=== PATIENT | male | born 1950 | race Caucasian/White ===

== ENCOUNTER → 2016-12-29 | Outpatient (CLI) | payer MEDICARE ==
[~2016-12-29] MED LIST: ALPRAZOLAM PO; AMOXICILLIN PO; ASPIRIN PO; ASPIRIN81 M1 PO; COSOPT EYE DROPS5 ML OP; CYMBALTA PO; FLONASE 0.05% N16 G1 INH; LAMICTAL100 MG PO; LAMOTRIGINE100 MG PO; LUMIGAN; MESTINON PO; PRAVACHOL PO; PRAVASTATIN SOD80 MG PO; PRILOSEC PO; PRILOSEC20 MG PO; SEROQUEL PO; VITAMIN D50000 UNIT PO; WELLBUTRIN SR150 MG PO; WELLBUTRIN XL PO; ZOLOFT PO; ZOLOFT100 MG PO
--- NOTE | ~2016-12-29 | MR175 ---
[facility] A Service of [facility] & [facility] RADIOLOGY TEXT RESULTS PATIENT: NOE STAHL LOCATION: [facility] : 48 UNIT #: [id number] AGE: [address]: Alfredo Worley MD SEX: M ORDER DR: [id number] [facility] [address] [place], [place] [address] [id number] O MR#: [id number] Acc #: [id number] NAME: NOE STAHL : 1950 SEX: M STUDY DATE/TIME: 12/29/2016 15:49 UNIT: [facility] ROOM: STUDY DESCRIPTION: MR Thoracic WWo Contrast Attending Physician: Alfredo Worley Ordering Physician: Alfredo Worley M.D. Primary Care Physician: Gabriela De La Rosa M.D. MRI CENTER REPORT This report is preliminary unless electronic signature is present. EXAM Thoracic spine MR with and without contrast 12/29/2016 CLINICAL HISTORY Disequilibrium for 3 years; previous surgery for arachnoid cyst. COMPARISON Prior thoracic spine MR dated 05/27/2003 FINDINGS There has been previous laminectomy centered at T6. Cord signal is normal. There is mild degenerative change with slight canal narrowing at 11-12 and 12-1, but no cord compression is seen. Along the posterior margin of the thecal sac centered at about T10 is what appears to be a possible thin arachnoid cyst, as much as 4.5 cm in craniocaudal dimension, and perhaps as much as 5 mm in AP dimension but without apparent mass effect on the cord and also not confirmed on axial images. A similar structure is faintly identifiable in retrospect on the prior exam probably slightly more prominent on the current study though still at that time up to 5 mm in maximal AP dimension. IMPRESSION Slightly more prominent possible arachnoid cyst centered at T10 without mass effect on the cord, measurements above, though the lesion or potential lesion was also probably present in retrospect in April 2003. The exam is otherwise unremarkable except for changes from laminectomy at T6. Cord signal is normal. No mass effect or abnormal enhancement seen. Dictated by... [facility] A Service of [facility] & [facility] RADIOLOGY TEXT RESULTS PATIENT: NOE STAHL [facility] UNIT #: [id number] AGE: [address]: Alfredo Worley MD SEX: M ORDER DR: Delon Lama M.D. THIS IS AN ELECTRONICALLY VERIFIED REPORT Delon Lama M.D. at 01/03/2017 11:48 AM TEV/to TD: 01/01/2017 18:35 JOB #: [id number] MRI CENTER REPORT COPY
--- NOTE | ~2016-12-29 | MR31 ---
[facility] A Service of [facility] RADIOLOGY TEXT RESULTS PATIENT: NOE STAHL LOCATION: [facility] : 48 UNIT #: [id number] AGE: [address]: Alfredo Worley MD SEX: M ORDER DR: [id number] [facility] [address] [place], [place] [address] [id number] O MR#: [id number] Acc #: [id number] NAME: NOE STAHL : 1950 SEX: M STUDY DATE/TIME: 12/29/2016 15:49 UNIT: [facility] ROOM: STUDY DESCRIPTION: MR Cervical WWo Contrast Attending Physician: Alfredo Worley M.D. Ordering Physician: Alfredo Worley M.D. Primary Care Physician: Gabriela De La Rosa M.D. MRI CENTER REPORT This report is preliminary unless electronic signature is present. EXAM Cervical spine MRI with and without contrast 12/29/2016. COMPARISON None. PROCEDURE Cervical spine MRI with and without contrast. Multiple series were repeated due to repeated patient motion despite repeated instructions from the technologist. CLINICAL HISTORY Clinical history is cervical myelopathy, disequilibrium. History of prostate cancer. Disequilibrium symptoms have been present for 3 years and has had surgery for arachnoid cyst removal. FINDINGS Allowing for motion, cord signal is normal. Bone marrow signal is normal. There is a slight 6-7 anterolisthesis but this appears to be degenerative. There is no abnormal enhancement within the cord, spinal column or spinal canal. At 2-3, there is no canal narrowing but there is mild or [id number]-[id number] left and minimal right foraminal narrowing. At 3-4, there is mild canal stenosis without cord compression and moderate or moderate to severe bilateral foraminal stenosis. At 4-5, there is mild degenerative canal stenosis and borderline to mild right and moderate left foraminal stenosis. [facility] A Service of [facility] RADIOLOGY TEXT RESULTS PATIENT: NOE STAHL [facility] UNIT #: [id number] AGE: [address]: Alfredo Worley MD SEX: M ORDER DR: At 5-6, there is a disc and osteophyte complex with canal stenosis and possible slight cord compression and moderate or moderate to severe right and severe left foraminal stenosis. At 6-7, there is minimal canal narrowing and minimal bilateral foraminal narrowing. At 7-1, there is no canal stenosis, or foraminal stenosis. IMPRESSION There are degenerative changes at several levels and there may be slight cord compression at 5-6, but there is no abnormal cord signal, at this or any level. There is no abnormal enhancement. Dictated by... Delon Lama M.D. THIS IS AN ELECTRONICALLY VERIFIED REPORT Delon Lama M.D. at 01/03/2017 11:48 AM TEV/gz TD: 01/01/2017 16:31 JOB #: [id number] MRI CENTER REPORT COPY
[2016-12-29 15:37] LABS: THYROID STIMULATING HORMONE 2.53 uIU/ml (0.34-5.60)
[2016-12-29 15:41] LABS: POC - CREATININE 0.59 mg/dL (0.64-1.27); POC - GFR >60.0 mL/min (>60)
[2016-12-29 15:44] LABS: FREE THYROXIN (T4) 0.71 ng/dL (0.58-1.64)
== END | disposition home or self-care (01) ==
LOC: CMRI 14:31
PROVIDERS: Psychiatry & Neurology Neurology
DX: R26.89 Other abnormalities of gait and mobility (principal); G95.9 Disease of spinal cord, unspecified; M47.12 Other spondylosis with myelopathy, cervical region
CPT/HCPCS: 36415; 72156; 72157; 82565; 82607; 83921; 84439; 84443; A9577

== ENCOUNTER → 2017-02-23 | Outpatient (CLI) | payer MEDICARE ==
--- NOTE | ~2017-02-23 | NM19 ---
[facility] A Service of [facility] & [facility] RADIOLOGY TEXT RESULTS PATIENT: NOE STAHL LOCATION: [facility] : 48 UNIT #: [id number] AGE: [address]: Gabriela De La Rosa MD SEX: M ORDER DR: [id number] [facility] [address] [place], [place] [address] [id number] O MR#: [id number] Acc #: [id number] NAME: NOE STAHL : 1950 SEX: M STUDY DATE/TIME: 02/23/2017 8:53 UNIT: [facility] ROOM: STUDY DESCRIPTION: AL Gastric Emptying Study Attending Physician: Gabriela De La Rosa M.D. Referring Physician: Gabriela De La Rosa M.D. Ordering Physician: Gabriela De La Rosa M.D. Primary Care Physician: Gabriela De La Rosa M.D. MEDICAL IMAGING REPORT This report is preliminary unless electronic signature is present EXAM Gastric emptying scan, 02/23/2017. HISTORY Nausea, vomiting, and gastroesophageal reflux disease with weight loss for 5 weeks, progressively worsening. FINDINGS The patient ingested 545 mcCi of technetium-99m tagged sulfur colloid in eggs. Images of the upper abdomen were obtained for 4 hours. After 1 hour, the stomach was 0% empty and after 2 hours the stomach was 0% empty. Normal range is greater than 60% empty after 2 hours of imaging and greater than 90% empty after 4 hours of imaging. IMPRESSION Marked delay in gastric emptying. Gastric emptying was essentially 0 at 120 minutes and 240 minutes as detailed above. Dictated by... Roger Jernigan M.D. THIS IS AN ELECTRONICALLY VERIFIED REPORT Roger Jernigan M.D. at 02/23/2017 5:11 PM ALBARO/marquita TD: 02/23/2017 16:14 JOB #: [id number] MEDICAL IMAGING REPORT Page 1 of 1 COPY
== END | disposition home or self-care (01) ==
LOC: CNUC 07:49
DX: R11.2 Nausea with vomiting, unspecified (principal); K21.9 Gastro-esophageal reflux disease without esophagitis; R63.4 Abnormal weight loss; K30 Functional dyspepsia
CPT/HCPCS: 78264; A9541